=== PATIENT | female | born 1970 | race Two or more races ===

== ENCOUNTER 2021-04-07 19:31 | Emergency (ER) | payer MEDICAID ==
[~2021-04-07] VITALS: Ht 152.4 cm; Wt 60.8 kg
--- NOTE | 2021-04-07 19:40 | NUR ---
BIB FRIEND FOR C/O R POSTERIOR THIGH DOG BITE 4 HOURS [employer]. TDAP NOT UPDATED. PT A/OX4. TOLERATING R/A. CAME IN AMBULATORY WITH WALKER.
[2021-04-07] MEDS ORDERED: HYDROCODONE/APAP 5/325MG TABLET ONE (19:58)
[2021-04-07] MEDS: HYDROCODONE/APAP 5/325MG TABLET PO ONE (20:00)
[2021-04-07] MEDS ORDERED: AMOX/CLAVULANATE 875 MG TABLET ONE (20:03)
[2021-04-07] MEDS ORDERED: IBUP-1955 PO (20:04)
[2021-04-07] MEDS ORDERED: AMOX-430 PO (20:04)
[2021-04-07] MEDS ORDERED: TRAM50TA2 PO (20:04)
[2021-04-07] MEDS ORDERED: TDAP [DIPH/PERTUSSIS/TET] 0.5 ML VIAL IM ONE (20:04)
[2021-04-07] MEDS ORDERED: BACI30OI9 TP (20:04)
[2021-04-07] MEDS ORDERED: LIDOCAINE HCL/MPF 1% 30 ML VIAL IJ ONE (20:09)
[2021-04-07] MEDS: AMOX/CLAVULANATE 875 MG TABLET PO ONE (20:10)
[2021-04-07] MEDS: TDAP [DIPH/PERTUSSIS/TET] 0.5 ML VIAL IM ONE (20:10)
--- NOTE | 2021-04-07 20:30 | NUR ---
WOUND CARE TX DONE; STITCHES TO RIGHT THIGH, NO ACTIVE BLEEDING NOTED. DRESSING KEPT C/D/I.
--- NOTE | 2021-04-07 20:45 | NUR ---
Patient discharged to home in stable condition. RX, Written and verbal after care instructions given. Patient verbalizes understanding of instruction. WOUND CARE TO R THIGH, KEPT C/D/I. PT D/C VIA W/C.
[2021-04-07 21:36] VITALS: BP 128/71
== END 2021-04-07 20:45 | disposition home or self-care (01) ==
LOC: ER 19:37
DX: S71.111A Laceration without foreign body, right thigh, initial encounter (principal); Z79.899 Other long term (current) drug therapy; W54.0XXA Bitten by dog, initial encounter; Y93.89 Activity, other specified; Y92.89 Other specified places as the place of occurrence of the external cause; Y99.8 Other external cause status
CPT/HCPCS: 12002; 90471; 90715; 99283; A6403; J3490

== ENCOUNTER 2021-04-09 15:32 | Emergency (ER) | payer MEDICAID ==
[~2021-04-09] VITALS: Ht 157.5 cm; Wt 61.2 kg
[~2021-04-09 15:32] MED LIST: AMOX-430 PO; BACI30OI9 TP; IBUP-1955 PO; TRAM50TA2 PO
[2021-04-09 15:53] VITALS: BP 115/71
[2021-04-09] MEDS ORDERED: BACITRACIN ZINC OINT PACKET 1 EA PACKET TP ONE (16:03)
--- NOTE | 2021-04-09 16:15 | NUR ---
PT WOUND CLEANSED, ACITRACIN APPLIED PER PROVIDER, NON ADHERENT DRESSING AND WRAPED WITH JAD BANDAGE.
--- NOTE | 2021-04-09 16:18 | NUR ---
Patient discharged to home in stable condition. Written and verbal after care instructions given. Patient verbalizes understanding of instruction. Pt ambulatory with a steady gait
== END 2021-04-09 16:39 | disposition home or self-care (01) ==
LOC: ER 16:38
DX: S71.111D Laceration without foreign body, right thigh, subsequent encounter (principal); W54.0XXD Bitten by dog, subsequent encounter

== ENCOUNTER → 2021-04-16 | Emergency (ER) | payer MEDICAID ==
[~2021-04-16] VITALS: Ht 152.4 cm; Wt 60.8 kg
--- NOTE | 2021-04-16 20:32 | NUR ---
DISCHARGE INSTRUCTIONS GIVEN TO PATIENT.
[2021-04-16 20:45] VITALS: BP 112/64
== END | disposition home or self-care (01) ==
LOC: ER 19:57
DX: S71.111D Laceration without foreign body, right thigh, subsequent encounter (principal); W54.0XXD Bitten by dog, subsequent encounter